=== PATIENT | female | born 1960 | race Caucasian/White ===

== ENCOUNTER 2021-03-06 09:25 | Emergency (ER) | payer OTHER ==
[2021-03-06 09:35] VITALS: BP 123/73; PULSE 84; TEMP 98.3; BMI 35.3
[2021-03-06] MEDS ORDERED: KETOROLAC TROMETHAMINE 60 MG/2 ML VIAL IM ONE (10:07)
[2021-03-06] MEDS ORDERED: ACETAMINOPHEN 500 MG TABLET (FP) PO ONE (10:07)
[2021-03-06] MEDS ORDERED: ACETAMINOPHEN 500 MG TABLET (FP) ONE (10:34)
[2021-03-06] MEDS ORDERED: KETOROLAC TROMETHAMINE 30 MG/1 ML VIAL ONE ×2 (10:34→10:40)
== END 2021-03-06 11:33 | disposition home or self-care (01) ==
LOC: JER 09:25
PROC: 3E0233Z Introduction of Anti-inflammatory into Muscle, Percutaneous Approach (ICD-10-PCS; principal; 2021-03-06)
DX: M25.571 Pain in right ankle and joints of right foot (principal)
CPT/HCPCS: 73610-TC-RT-FY; 73630-TC-RT-FY; 99284-25

== ENCOUNTER 2022-12-14 06:12 | Emergency (ER) | payer OTHER ==
[2022-12-14 06:19] VITALS: BMI 34.4
[2022-12-14] MEDS ORDERED: METHOCARBAMOL 500 MG TABLET PO ONE (07:21)
[2022-12-14] MEDS ORDERED: METHOCARBAMOL 500 MG TABLET ONE (07:27)
[2022-12-14 09:04] LABS: BASO % 0.8 % (0-2.0); EOS % 2.2 % (0-4.5); HEMATOCRIT 36.7 % (32.4-45.2); HEMOGLOBIN 12.3 GM/dL (10.7-15.3); LYMPH % 31.6 % (8-40); MCH 29.4 pg (25.7-33.7); MCHC 33.6 g/dl (32.0-36.0); MEAN CELL VOLUME 87.4 fl (80-96); MONO % 9.5 % (3.8-10.2); NEUT % 55.9 % (42.8-82.8); PLATELET COUNT 177 10^3/uL (134-434); RDW 13.7 % (11.6-15.6); WHITE BLOOD COUNT 4.4 K/mm3 (4.0-10.0)
[2022-12-14 09:37] LABS: CHLORIDE 106 mmol/L (98-107); SODIUM 139 mmol/L (136-145)
[2022-12-14 09:43] LABS: CALCIUM 9.3 mg/dL (8.5-10.1)
[2022-12-14 09:45] LABS: ALBUMIN 3.9 g/dl (3.4-5.0); ANION GAP 1 MMOL/L (8-16); BLOOD UREA NITROGEN 15.9 mg/dL (7-18); CO2 32 mmol/L (21-32); GLUCOSE,RANDOM 117 mg/dL (74-106)
[2022-12-14 09:47] LABS: CREATININE 0.6 mg/dL (0.55-1.3); SGOT/AST 26 U/L (15-37); SGPT/ALT 38 U/L (13-61)
[2022-12-14 09:48] LABS: TOT PROT 7.3 g/dl (6.4-8.2)
[2022-12-14 09:49] LABS: BILIRUBIN,TOTAL 0.5 mg/dL (0.2-1)
[2022-12-14 09:51] LABS: ALK PHOS 77 U/L (45-117)
[2022-12-14 10:00] LABS: ERYTHROCYTE SEDIMENTATION RATE 14 mm/hr (0-30)
[2022-12-14 10:54] VITALS: BP 119/79; PULSE 65; RESP 20; TEMP 98.2
[2022-12-14] MEDS ORDERED: LIDOCAINE 5% TOPICAL PATCH TP ONE (11:18)
[2022-12-14] MEDS ORDERED: KETOROLAC TROMETHAMINE 15 MG/ML VIAL IVPUSH ONE (13:05)
[2022-12-14] MEDS ORDERED: KETOROLAC TROMETHAMINE 15 MG/ML VIAL ONE (13:07)
[2022-12-14] MEDS ORDERED: LIDOCAINE 5% TOPICAL PATCH ONE (13:07)
[2022-12-14] MEDS ORDERED: LIDOCAINE PATCH REMOVAL MC ONE (22:00)
== END 2022-12-14 14:46 | disposition home or self-care (01) ==
LOC: JER 06:12
PROC: 3E033GC Introduction of Other Therapeutic Substance into Peripheral Vein, Percutaneous Approach (ICD-10-PCS; principal; 2022-12-14)
DX: M54.2 Cervicalgia (principal)
CPT/HCPCS: 36415; 72125-TC; 80053; 85025; 85651; 86140; 99285-25